=== PATIENT | female | born 1995 | race Caucasian/White ===

== ENCOUNTER 2019-07-15 18:20 | Emergency (ER) | payer OTHER ==
[2019-07-15] MEDS ORDERED: Sodium Chloride 0.9% 10 ML Syringe FLUSH PRN (19:27)
[2019-07-15] MEDS ORDERED: Sodium Chloride 0.9% 2.5 ML Syringe FLUSH PRN (19:27)
[2019-07-15] MEDS ORDERED: Sodium Chloride 0.9% 1,000 ML IV ONE (19:27)
[2019-07-15] MEDS ORDERED: Ondansetron 4 MG/2 ML SDV IVPUSH ONE (19:29)
--- NOTE | 2019-07-15 19:29 | EDM.PDOC ---
ED HPI GENERAL MEDICAL PROBLEM - General Chief Complaint: General Stated Complaint: RT FACE NUMB Time Seen by Provider: 07/15/19 19:17 - History of Present Illness INITIAL COMMENTS - FREE TEXT/NARRATIVE: HISTORY AND PHYSICAL: History of present illness: The patient is a 24-year-old female who follows at [facility] and has a history of PCOS and depression and presents with complaints of 3 days of feeling like her right face and right side of her neck is numb and tingly but not weak and a diffuse frontal and top of the head headache associated with some nausea but no vomiting or diarrhea. The patient says that there is nothing new or different this evening but it has persisted so she came for evaluation. [place] to the patient's father at bedside they have been trying to get her into the clinic but there were no appointments and so they came here this evening but there is nothing new or different about the symptoms and they have been constant. The patient is eating and drinking and does not have any weakness to her face and no extremity weakness numbness or tingling. She has no associated symptoms of fever chills upper respiratory symptomatology abdominal pain difficulty urinating and defecating. She has had no recent trauma to her head or neck and has no pain in her neck. She says her headache is just vague and it is bilateral on the frontal and top part of her head she has had no sinus drainage or congestion. She has been taking Motrin 400 mg for her headache and very irregularly. She is not having trouble speaking swallowing she and her father both state that she is just had generalized weakness and having low energy for the last 3 days as well although she is not passing out or falling she just feels like she has no energy and has generalized weakness. She says that she does get bad headaches at least 3 times a month but she has never spoken with her provider about this and she has never seen a specialist nor has she ever had a diagnosis of migraine headaches. Review of systems: As per history of present illness and below otherwise all systems reviewed and negative. Past medical history: As per history of present illness and as reviewed below otherwise noncontributory. Surgical history: As per history of present illness and as reviewed below otherwise noncontributory. Social history: No reported history of drug or alcohol abuse. Family history: As per history of present illness and as reviewed below otherwise noncontributory. Physical exam: General: Well-developed well-nourished overweight female who is nontoxic and speaking softly but clearly in the ED without slurred or muffled voice. She is able to move in the ED stand and ambulated into the ED without assistance. vital signs are noted by me HEENT: Atraumatic, normocephalic, pupils reactive, negative for conjunctival pallor or scleral icterus, mucous membranes moist, throat clear, neck supple, nontender, trachea midline. There is no cervical adenopathy or nuchal rigidity and no specific mastoid tenderness or erythema no sinus tenderness on palpation and no scalp defects or deformities. There is also no specific tenderness on palpation of the scalp Lungs: Clear to auscultation, breath sounds equal bilaterally, chest nontender. Heart: S1S2, regular, negative for clicks, rubs, or JVD. Abdomen: Soft, nondistended, nontender. Negative for masses or hepatosplenomegaly. Negative for costovertebral tenderness. Pelvis: Stable nontender. Genitourinary: Deferred. Rectal: Deferred. Extremities: Atraumatic, negative for cords or calf pain. Neurovascular unremarkable. Neuro: Awake, alert, oriented. Cranial nerves II through XII unremarkable. There is no facial droop and there is an even smile, patient is able to close eyes and resist opening bilaterally and there is no asymmetry with raise of eyebrows. Cerebellum unremarkable. Motor is 4/5 throughout with a questionable effort and sensory unremarkable throughout the exception of the right face and right anterior neck where she says that she is not feeling simple touch but can feel pressure. This is not limited to around her mouth but extends over her entire face but not into her scalp but does extend to inferior to the mandible and into the anterior neck but not below the clavicle. The decreased sensation does not cross the midline and in fact does not completely extend to the midline and it does not go posteriorly.. Diagnostics: EKG CT scan of the head CBC CMP troponin TSH UA UCG urine cx Therapeutics: IV IV fluids aspirin Toradol Benadryl Solu-Medrol Patient says that her headache is improving but the numbness in her face and anterior neck is still present. I will discuss this case with the neurologist on-call at [facility] in [place] [address]: Was discussed with Dr. Maldonado who is our neurologist and also on-call in [place] and she says that the patient is safe for discharge home and she wants the patient to see her nurse practitioner either tomorrow or the next day. I have informed the patient of this conversation and the need to call the clinic in the morning to schedule that follow-up with the nurse practitioner for further care. We will go ahead and treat the UTI and Dr. Maldonado has advised using [id number] ibuprofen in the appropriate dose pain management until she is followed up Impression: Headache with facial and neck paresthesia, improving, history of chronic headaches UTI Definitive disposition and diagnosis as appropriate pending reevaluation and review of above. headache Pain Score (Numeric/FACES): 8 - Related Data Allergies Allergy/AdvReac Type Severity Reaction Status Date / Time No Known Allergies Allergy Verified 07/15/19 18:33 Home Meds: Home Meds Etonogestrel [Nexplanon] 07/15/19 [History] Sertraline [Zoloft] 50 mg PO DAILY 07/15/19 [History] metFORMIN [Glucophage] 850 mg PO BID 07/15/19 [History] Past Medical History Other Genitourinary History: ovarian cyst Other Musculoskeletal History: back condition similar to scoliosis per PT - Past Surgical History HEENT Surgical History: Reports: Eye Surgery GI Surgical History: Reports: Cholecystectomy Other Female Surgeries/Procedures: PCOS Social & Family History - Family History Family Medical History: Noncontributory - Tobacco Use Smoking Status *Q: Never Smoker - Recreational Drug Use Recreational Drug Use: No ED ROS GENERAL - Review of Systems Review Of Systems: Comprehensive ROS is negative, except as noted in HPI. ED EXAM, GENERAL - Physical Exam Exam: See Below (See dictation) Course - Vital Signs Last Recorded V/S: Last Vital Signs Temp 36.6 C 07/15/19 20:38 Pulse 93 07/15/19 21:06 Resp 16 07/15/19 21:06 BP 152/81 H 07/15/19 21:06 Pulse Ox 98 07/15/19 21:06 - Orders/Labs/Meds Orders: Active Orders 24 hr Category Date Time Status Blood Glucose Check, Bedside [RC] ONETIME Care 07/15/19 19:27 Active EKG Documentation Completion [RC] STAT Care 07/15/19 19:26 Active CULTURE URINE [RM] Stat Lab 07/15/19 19:34 Received Sodium Chloride 0.9% [Saline Flush] Med 07/15/19 19:27 Active 10 ml FLUSH ASDIRECTED PRN Sodium Chloride 0.9% [Saline Flush] Med 07/15/19 19:27 Active 2.5 ml FLUSH ASDIRECTED PRN Saline Lock Insert [OM.PC] Stat Oth 07/15/19 19:26 Ordered Medication Orders Sodium Chloride (Saline Flush) 10 ml FLUSH ASDIRECTED PRN PRN Reason: Keep Vein Open Sodium Chloride (Saline Flush) 2.5 ml FLUSH ASDIRECTED PRN PRN Reason: Keep Vein Open Labs: Laboratory Tests 07/15/19 07/15/19 07/15/19 Range/Units 19:34 19:34 19:38 WBC 9.35 (4.0-11.0) K/uL RBC 4.86 (4.30-5.90) M/uL Hgb 14.0 (12.0-16.0) g/dL Hct 43.2 (36.0-46.0) % MCV 88.9 (80.0-98.0) fL MCH 28.8 (27.0-32.0) pg MCHC 32.4 (31.0-37.0) g/dL RDW Std Deviation 46.9 (28.0-62.0) fl RDW Coeff of Kevin 15 (11.0-15.0) % Plt Count 350 (150-400) K/uL MPV 9.60 (7.40-12.00) fL Neut % (Auto) 59.0 (48.0-80.0) % Lymph % (Auto) 23.6 (16.0-40.0) % [place] % (Auto) 10.9 (0.0-15.0) % Eos % (Auto) 6.0 (0.0-7.0) % Baso % (Auto) 0.5 (0.0-1.5) % Neut # (Auto) 5.5 (1.4-5.7) K/uL Lymph # (Auto) 2.2 (0.6-2.4) K/uL [place] # (Auto) 1.0 H (0.0-0.8) K/uL Eos # (Auto) 0.6 (0.0-0.7) K/uL Baso # (Auto) 0.1 (0.0-0.1) K/uL Nucleated RBC % 0.0 /100WBC Nucleated RBCs # 0 K/uL Sodium (136-145) mmol/L Potassium (3.5-5.1) mmol/L Chloride (98-107) mmol/L Carbon Dioxide (21.0-32.0) mmol/L BUN (7.0-18.0) mg/dL Creatinine (0.6-1.0) mg/dL Est Cr Clr Drug Dosing mL/min Estimated GFR (MDRD) ml/min Glucose (74-106) mg/dL POC Glucose (60-110) mg/dL Calcium (8.5-10.1) mg/dL Total Bilirubin (0.2-1.0) mg/dL AST (15-37) IU/L ALT (14-63) IU/L Alkaline Phosphatase (46-116) U/L Troponin I (0.000-0.056) ng/mL Total Protein (6.4-8.2) g/dL Albumin (3.4-5.0) g/dL Globulin (2.6-4.0) g/dL Albumin/Globulin Ratio (0.9-1.6) TSH 3rd Generation (0.36-3.74) uIU/mL Urine Color YELLOW Urine Appearance HAZY Urine pH 8.0 (5.0-8.0) Ur Specific [place] 1.020 (1.001-1.035) Urine Protein NEGATIVE (NEGATIVE) mg/dL Urine Glucose (UA) NEGATIVE (NEGATIVE) mg/dL Urine Ketones NEGATIVE (NEGATIVE) mg/dL Urine Occult Blood TRACE-LYSED H (NEGATIVE) Urine Nitrite NEGATIVE (NEGATIVE) Urine Bilirubin NEGATIVE (NEGATIVE) Urine Urobilinogen 1.0 (<2.0) EU/dL Ur Leukocyte Esterase SMALL H (NEGATIVE) Urine RBC 2-4 (0-2/HPF) Urine WBC 8-12 (0-5/HPF) Ur Epithelial Cells FEW (NONE-FEW) Amorphous Sediment FEW (NEGATIVE) Urine Bacteria FEW (NEGATIVE) Urine Mucus RARE (NONE-MOD) Urine HCG, Qual NEGATIVE (NEGATIVE) 07/15/19 07/15/19 Range/Units 19:38 19:39 WBC (4.0-11.0) K/uL RBC (4.30-5.90) M/uL Hgb (12.0-16.0) g/dL Hct (36.0-46.0) % MCV (80.0-98.0) fL MCH (27.0-32.0) pg MCHC (31.0-37.0) g/dL RDW Std Deviation (28.0-62.0) fl RDW Coeff of Kevin (11.0-15.0) % Plt Count (150-400) K/uL MPV (7.40-12.00) fL Neut % (Auto) (48.0-80.0) % Lymph % (Auto) (16.0-40.0) % [place] % (Auto) (0.0-15.0) % Eos % (Auto) (0.0-7.0) % Baso % (Auto) (0.0-1.5) % Neut # (Auto) (1.4-5.7) K/uL Lymph # (Auto) (0.6-2.4) K/uL [place] # (Auto) (0.0-0.8) K/uL Eos # (Auto) (0.0-0.7) K/uL Baso # (Auto) (0.0-0.1) K/uL Nucleated RBC % /100WBC Nucleated RBCs # K/uL Sodium 143 (136-145) mmol/L Potassium 3.8 (3.5-5.1) mmol/L Chloride 105 (98-107) mmol/L Carbon Dioxide 27.0 (21.0-32.0) mmol/L BUN 8 (7.0-18.0) mg/dL Creatinine 0.6 (0.6-1.0) mg/dL Est Cr Clr Drug Dosing 116.32 mL/min Estimated GFR (MDRD) > 60.0 ml/min Glucose 88 (74-106) mg/dL POC Glucose 76 (60-110) mg/dL Calcium 9.3 (8.5-10.1) mg/dL Total Bilirubin 0.1 L (0.2-1.0) mg/dL AST 21 (15-37) IU/L ALT 35 (14-63) IU/L Alkaline Phosphatase 109 (46-116) U/L Troponin I < 0.050 (0.000-0.056) ng/mL Total Protein 8.0 (6.4-8.2) g/dL Albumin 3.5 (3.4-5.0) g/dL Globulin 4.5 H (2.6-4.0) g/dL Albumin/Globulin Ratio 0.8 L (0.9-1.6) TSH 3rd Generation 0.97 (0.36-3.74) uIU/mL Urine Color Urine Appearance Urine pH (5.0-8.0) Ur Specific [place] (1.001-1.035) Urine Protein (NEGATIVE) mg/dL Urine Glucose (UA) (NEGATIVE) mg/dL Urine Ketones (NEGATIVE) mg/dL Urine Occult Blood (NEGATIVE) Urine Nitrite (NEGATIVE) Urine Bilirubin (NEGATIVE) Urine Urobilinogen (<2.0) EU/dL Ur Leukocyte Esterase (NEGATIVE) Urine RBC (0-2/HPF) Urine WBC (0-5/HPF) Ur Epithelial Cells (NONE-FEW) Amorphous Sediment (NEGATIVE) Urine Bacteria (NEGATIVE) Urine Mucus (NONE-MOD) Urine HCG, Qual (NEGATIVE) Meds: Medications Generic Name Dose Route Start Last Admin Trade Name Freq PRN Reason Stop Dose Admin Sodium Chloride 10 ml 07/15/19 19:27 Saline Flush FLUSH ASDIRECTED PRN Keep Vein Open Sodium Chloride 2.5 ml 07/15/19 19:27 Saline Flush FLUSH ASDIRECTED PRN Keep Vein Open Discontinued Medications Generic Name Dose Route Start Last Admin Trade Name Abdirahman PRN Reason Stop Dose Admin Aspirin 324 mg 07/15/19 20:46 07/15/19 20:56 Aspirin PO 07/15/19 20:47 324 mg ONETIME ONE Administration Diphenhydramine HCl 50 mg 07/15/19 20:46 07/15/19 20:57 Benadryl IVPUSH 07/15/19 20:47 50 mg ONETIME ONE Administration Sodium Chloride 1,000 mls @ 999 mls/hr 07/15/19 19:27 07/15/19 19:54 Normal Saline IV 07/15/19 20:27 999 mls/hr STAT ONE Administration Ketorolac Tromethamine 30 mg 07/15/19 20:46 07/15/19 20:57 Toradol IVPUSH 07/15/19 20:47 30 mg ONETIME ONE Administration Methylprednisolone Sodium Succinate 125 mg 07/15/19 20:46 07/15/19 20:57 Solu-Medrol IVPUSH 07/15/19 20:47 125 mg ONETIME ONE Administration Ondansetron HCl 4 mg 07/15/19 19:29 07/15/19 19:54 Zofran IVPUSH 07/15/19 19:30 4 mg ONETIME ONE Administration Departure - Departure Time of Disposition: 21:38 Disposition: Home, Self-Care 01 Condition: Good Clinical Impression: Facial paresthesia, UTI, Urinary tract infectious disease Headache Qualifiers: Headache type: unspecified Headache chronicity pattern: unspecified pattern Intractability: not intractable Qualified Code(s): R51 - Headache - Discharge Information Referrals: Ramona Solis MD [Primary Care Provider] - Forms: ED Department Discharge Additional Instructions: The following information is given to patients seen in the emergency department who are being discharged to home. This information is to outline your options for follow-up care. We provide all patients seen in our emergency department with a follow-up referral. The need for follow-up, as well as the timing and circumstances, are variable depending upon the specifics of your emergency department visit. If you don't have a primary care physician on staff, we will provide you with a referral. We always advise you to contact your personal physician following an emergency department visit to inform them of the circumstance of the visit and for follow-up with them and/or the need for any referrals to a consulting specialist. The emergency department will also refer you to a specialist when appropriate. This referral assures that you have the opportunity for followup care with a specialist. All of these measure are taken in an effort to provide you with optimal care, which includes your followup. Under all circumstances we always encourage you to contact your private physician who remains a resource for coordinating your care. When calling for followup care, please make the office aware that this follow-up is from your recent emergency room visit. If for any reason you are refused follow-up, please contact the [facility] emergency department at and ask to speak to the emergency department charge nurse. [facility] [address] [place] [address], [address] [place] [address] Please call the clinic in the morning and schedule a follow-up appointment with the nurse practitioner, Lorelei, for Dr. Maldonado as we discussed making sure that they know that Dr. Maldonado is aware of your need to follow-up with her. Use [id number] ibuprofen/Motrin for headache pain 800 mg every 8 hours and you can add Tylenol as you choose. Push hydration and return to ER as needed and as discussed Sepsis Event Note - Evaluation Sepsis Screening Result: No Definite Risk - Focused Exam Vital Signs: Vital Signs Temp Pulse Resp BP Pulse Ox 07/15/19 21:06 93 16 152/81 H 98 07/15/19 20:38 36.6 C 97 18 151/81 H 97 07/15/19 19:19 36.4 C 102 H 16 145/85 H 96 07/15/19 18:36 36.5 C 107 H 18 140/82 96 Date Exam was Performed: 07/15/19 Time Exam was Performed: 21:37 - My Orders Last 24 Hours: My Active Orders 07/15/19 19:26 EKG Documentation Completion [RC] STAT Saline Lock Insert [OM.PC] Stat 07/15/19 19:27 Blood Glucose Check, Bedside [RC] ONETIME Sodium Chloride 0.9% [Saline Flush] 10 ml FLUSH ASDIRECTED PRN Sodium Chloride 0.9% [Saline Flush] 2.5 ml FLUSH ASDIRECTED PRN 07/15/19 19:34 CULTURE URINE [RM] Stat - Assessment/Plan Last 24 Hours: My Active Orders 07/15/19 19:26 EKG Documentation Completion [RC] STAT Saline Lock Insert [OM.PC] Stat 07/15/19 19:27 Blood Glucose Check, Bedside [RC] ONETIME Sodium Chloride 0.9% [Saline Flush] 10 ml FLUSH ASDIRECTED PRN Sodium Chloride 0.9% [Saline Flush] 2.5 ml FLUSH ASDIRECTED PRN 07/15/19 19:34 CULTURE URINE [RM] Stat
[2019-07-15 20:15] LABS: BLOOD UREA NITROGEN,BUN 8 mg/dL (7.0-18.0); CHLORIDE,CL 105 mmol/L (98-107); GLUCOSE RANDOM 88 mg/dL (74-106); POTASSIUM,K 3.8 mmol/L (3.5-5.1); SODIUM,NA 143 mmol/L (136-145)
--- NOTE | 2019-07-15 20:44 | CT ---
INDICATION: Headache with right sided facial numbness. CT HEAD WITHOUT CONTRAST TECHNIQUE: Multiple axial CT images were performed through the head without intravenous contrast administration. COMPARISON: No previous studies are currently available for comparison. FINDINGS: No acute intracranial hemorrhage is identified. There is no mass effect or midline shift. Ventricles are normal in size and configuration. There is a 3.3 x 1.8 x 2.6 centimeter probable arachnoid cyst over the paramedian right frontal lobe convexity, as on image 31 of series 203 and image 34 of series 204. Brain parenchyma appears normal with unremarkable nazario-white differentiation. Moderate dolichocephaly is noted. Osseous structures are otherwise within normal limits and no fractures are seen. Included portions of the paranasal sinuses and mastoid air cells are normally aerated. IMPRESSION: 1. No acute intracranial abnormality identified. 2. Incidental findings including moderate dolichocephaly and probable arachnoid cyst over the paramedian right frontal convexity. GUMARO CLAY MD [employer] Dictated by John Clay MD @ 07/15/2019 8:40:17 PM Dictated by: John Clay MD @ 07/15/2019 20:41:53 (Electronically Signed)
[2019-07-15] MEDS ORDERED: diphenhydrAMINE 50 MG/ML SDV IVPUSH ONE (20:46)
[2019-07-15] MEDS ORDERED: Ketorolac 30 MG/ML SDV IVPUSH ONE (20:46)
[2019-07-15] MEDS ORDERED: Aspirin 81 MG Tab.Chew PO ONE (20:46)
[2019-07-15] MEDS ORDERED: methylPREDNISolone Sodium Succinate 125 MG/2 ML SDV IVPUSH ONE (20:46)
== END 2019-07-15 22:11 | disposition home or self-care (01) ==
LOC: MW.ED 18:20
DX: R51 Headache (principal); R20.2 Paresthesia of skin; N39.0 Urinary tract infection, site not specified; Z79.899 Other long term (current) drug therapy
CPT/HCPCS: 70450; 80053; 81001; 81025; 82962; 84443; 84484; 85025; 87086; 93005; 96361; 96374; 96375; 99284; A9270; J1200; J1885; J2405; J2930; J7030

== ENCOUNTER 2019-07-20 18:10 | Emergency (ER) | payer OTHER ==
--- NOTE | 2019-07-20 18:27 | EDM.PDOC ---
ED HPI GENERAL MEDICAL PROBLEM - General Chief Complaint: Neuro Symptoms/Deficits Stated Complaint: NUMBNESS ON THE RIGHT SIDE Time Seen by Provider: 07/20/19 18:18 Source of Information: Reports: Patient, Family History Limitations: Reports: No Limitations - History of Present Illness INITIAL COMMENTS - FREE TEXT/NARRATIVE: HISTORY AND PHYSICAL: History of present illness: Patient is a 24-year-old female who presents to the emergency room with concerns of right-sided facial numbness and tingling that radiates into her right arm and right leg, which has been ongoing for 2-3 weeks. She states that the right arm and leg are also somewhat painful like they have "fallen asleep". Patient was seen in our emergency room on 07/15/2019 and was evaluated for these symptoms. She did have a full work-up which included a head CT, all findings appeared within normal limits with the exception of a urinary tract infection. The provider who saw her also spoke with Dr. Townsend, neurologist on-call who recommended that she follow-up as outpatient for MRI. She saw Dr Townsend on 07/16/2019, who said her physical examination "was fine" and scheduled MRI appointment on 08/04/2019. Patient reports her symptoms have not improved, and the numbness sensation has worsened. Review of systems: As per history of present illness and below otherwise all systems reviewed and negative. Past medical history: As per history of present illness and as reviewed below otherwise noncontributory. Surgical history: As per history of present illness and as reviewed below otherwise noncontributory. Social history: See social history for further information Family history: As per history of present illness and as reviewed below otherwise noncontributory. Physical exam: General: Well-developed and well-nourished 24-year-old female. Alert and oriented. Nontoxic-appearing and in no acute distress. HEENT: Atraumatic, normocephalic, pupils equal and reactive bilaterally, negative for conjunctival pallor or scleral icterus, mucous membranes moist, TMs normal bilaterally, throat clear, neck supple, nontender, trachea midline. No drooling or trismus noted. No meningeal signs. No hot potato voice noted. Lungs: Clear to auscultation, breath sounds equal bilaterally, chest nontender. Heart: S1S2, regular rate and rhythm without overt murmur Abdomen: Soft, nondistended, nontender. Negative for masses or hepatosplenomegaly. Negative for costovertebral tenderness. Skin: Intact, warm, dry. No lesions or rashes noted. Extremities: Atraumatic, moves all extremities per self without difficulty or deficits, negative for cords or calf pain. Neurovascular unremarkable. Neuro: Awake, alert, oriented. Cranial nerves II through XII unremarkable. Cerebellum unremarkable. Motor and sensory unremarkable throughout. Exam nonfocal. Notes: Did have patient vigorously moved throughout the emergency room to assess for any weakness or deficits. Her physical exam is WNL. GCS 15, NIH 0. Today's evaluation is no different than her previous orients that she has been having over the past several weeks. I did have Dr Steven, who saw her last week briefly evaluate this patient -there is no difference from that previous exam. After talking with the patient and father further, she states she wanted to get her MRI expedited as she has to work 08/04/2019 and didn't want to have to miss work. supportive care measures were reviewed and discussed. Voices understanding and is agreeable to plan of care. Denies any further questions or concerns at this time. Diagnostics: Head CT Therapeutics: None Prescription: None Impression: Facial paresthesia Plan: 1. Call Dr Townsend's office in the morning. Your head CT was normal today. She may want to expedite your MRI appointment. 2. Return to the ED as needed as discussed. Definitive disposition and diagnosis as appropriate pending reevaluation and review of above. R side of the head Pain Score (Numeric/FACES): 8 - Related Data Allergies Allergy/AdvReac Type Severity Reaction Status Date / Time No Known Allergies Allergy Verified 07/20/19 18:15 Home Meds: Home Meds Etonogestrel [Nexplanon] 68 mg PO ASDIRECTED 07/15/19 [History] Sertraline [Zoloft] 50 mg PO DAILY 07/15/19 [History] metFORMIN [Glucophage] 850 mg PO BID 07/15/19 [History] Past Medical History Other Genitourinary History: ovarian cyst Other Musculoskeletal History: back condition similar to scoliosis per PT Neurological History: Reports: Migraines - Infectious Disease History Infectious Disease History: Reports: None - Past Surgical History HEENT Surgical History: Reports: Eye Surgery GI Surgical History: Reports: Cholecystectomy Other Female Surgeries/Procedures: PCOS Social & Family History - Family History Family Medical History: Noncontributory - Tobacco Use Smoking Status *Q: Never Smoker Second Hand Smoke Exposure: No - Caffeine Use Caffeine Use: Reports: None - Recreational Drug Use Recreational Drug Use: No ED ROS GENERAL - Review of Systems Review Of Systems: Comprehensive ROS is negative, except as noted in HPI. ED EXAM, NEURO - Physical Exam Exam: See Below (See dictation) Course - Vital Signs Last Recorded V/S: Last Vital Signs Temp 96.8 F 07/20/19 19:20 Pulse 78 07/20/19 19:20 Resp 17 07/20/19 19:20 BP 138/78 07/20/19 19:20 Pulse Ox 97 07/20/19 19:20 Departure - Departure Time of Disposition: 19:07 Disposition: Home, Self-Care 01 Clinical Impression: Facial paresthesia - Discharge Information Instructions: Paresthesia, [id number] Referrals: Ramona Solis MD [Primary Care Provider] - Forms: ED Department Discharge Additional Instructions: The following information is given to patients seen in the emergency department who are being discharged to home. This information is to outline your options for follow-up care. We provide all patients seen in our emergency department with a follow-up referral. The need for follow-up, as well as the timing and circumstances, are variable depending upon the specifics of your emergency department visit. If you don't have a primary care physician on staff, we will provide you with a referral. We always advise you to contact your personal physician following an emergency department visit to inform them of the circumstance of the visit and for follow-up with them and/or the need for any referrals to a consulting specialist. The emergency department will also refer you to a specialist when appropriate. This referral assures that you have the opportunity for follow-up care with a specialist. All of these measure are taken in an effort to provide you with optimal care, which includes your follow-up. Under all circumstances we always encourage you to contact your private physician who remains a resource for coordinating your care. When calling for follow-up care, please make the office aware that this follow-up is from your recent emergency room visit. If for any reason you are refused follow-up, please contact the [facility] Emergency Department at and asked to speak to the emergency department charge nurse. [facility] [address] [place] [address] [facility] [address] [place] [address] Townsend's office in the morning. Your head CT was normal today. She may want to expedite your MRI appointment. 2. Return to the ED as needed as discussed. Sepsis Event Note - Evaluation Sepsis Screening Result: No Definite Risk - Focused Exam Vital Signs: Vital Signs Temp Pulse Resp BP Pulse Ox 07/20/19 19:20 96.8 F 78 17 138/78 97 07/20/19 18:16 96.5 F 102 H 16 146/98 H 96 Date Exam was Performed: 07/20/19 Time Exam was Performed: 22:00
--- NOTE | 2019-07-20 18:51 | CT ---
Head CT Technique: Multiple axial sections through the brain were obtained. Intravenous contrast was not utilized. Comparison: Prior head CT study of 07/15/19. Findings: Ventricles along with basal cisterns and sulci over the convexities appear within normal limits. There is focal CSF area overlying the right upper parietal convexity which is stable from prior exam and felt to be a benign etiology. No abnormal parenchymal densities are seen. No evidence of intracranial hemorrhage. No midline shift or mass effect is seen. No acute calvarial abnormality is appreciated. Visualized paranasal sinuses and mastoid sinuses are clear. Impression: 1. Findings which is felt to be incidental as noted above. 2. No acute intracranial abnormality is identified. Diagnostic code #2 Study was dictated in Mountain Standard Time
== END 2019-07-20 19:20 | disposition home or self-care (01) ==
LOC: MW.ED 18:10
DX: R20.2 Paresthesia of skin (principal)
CPT/HCPCS: 70450; 70450-26; 99284-25

== ENCOUNTER 2019-08-23 11:09 | Emergency (ER) | payer OTHER ==
[2019-08-23 12:16] LABS: BLOOD UREA NITROGEN,BUN 22 mg/dL (7.0-18.0); CARBON DIOXIDE,CO2 22.1 mmol/L (21.0-32.0); CHLORIDE,CL 105 mmol/L (98-107); GLUCOSE RANDOM 148 mg/dL (74-106); POTASSIUM,K 4.3 mmol/L (3.5-5.1); SODIUM,NA 141 mmol/L (136-145)
--- NOTE | 2019-08-23 12:17 | CR ---
INDICATION: Multiple sclerosis TECHNIQUE: Chest radiograph 1 view COMPARISON: None FINDINGS: Severe degradation of image quality noted due to body habitus. Mediastinum: The mediastinum is normal in appearance. The heart silhouette is normal in size and morphology. Lung: Very small lung volumes are present with perihilar interstitial opacities which may be due to atelectasis or mild edema. No sign of pleural effusion seen. No pneumothorax is identified. Bone and Soft tissue: Unremarkable for age. IMPRESSIONS: 1. Very small lung volumes are present with perihilar interstitial opacities which may be due to atelectasis or mild edema. 2. Severe degradation of image quality noted due to body habitus. Dictated by Abelino Hooper MD @ 08/23/2019 12:14:35 PM Dictated by: Abelino Hooper MD @ 08/23/2019 12:14:40 (Electronically Signed)
--- NOTE | 2019-08-23 12:32 | EDM.PDOC ---
ED HPI GENERAL MEDICAL PROBLEM - General Chief Complaint: Cardiovascular Problem Stated Complaint: FAST HEART BEAT Time Seen by Provider: 08/23/19 11:15 - History of Present Illness INITIAL COMMENTS - FREE TEXT/NARRATIVE: HPI 24-year-old morbidly obese female with recently diagnosed MS receiving IV starting infusions of Solu-Medrol (4000 mg) presents for evaluation of recurrent episodes of palpitations that occurred following her infusions. No history of DVT, PE, or further identifiable abnormalities. No chest pain, no cough. No fevers or chills. M/S/F/SocHx notable for: please see HPI; remainder reviewed with patient and in chart. ROS: Negative constitutional, eye, cardiovascular, pulmonary, GI, , MSK, skin , neurologic, psychiatric, endocrine unless noted in the HPI. Exam Gen: Pleasant, non-toxic appearing, resting comfortably. HEENT: NC, AT, PEERL, EOMI. Resp: Clear to auscultation bilaterally, normal work of breathing, no accessory muscle usage. Card: Regular rate and rhythm with no murmurs, rubs, or gallops, extremities warm and well perfused. GI: Non-tender to palpation throughout all quadrants, no focal tenderness at McBurney's point, negative Saab's sign, non-distended, no rebound or guarding. : No suprapubic tenderness to palpation. MSK: No visible deformities, strength and tone without visually appreciable deficit. Skin: Normal color with no visible lesions. Neuro: alert and oriented 3, no facial asymmetry, vision and hearing WNL. Psych: Mood and affect appropriate. Labs / Imaging: EKG: SR 94 bpm, no IN segment depressions, IN 124 ms, QRS 92 ms, no ST segment elevations or depressions, no discordant T wave inversions, no hyperacute T waves, QTc 427 seconds. WBC 17.4, HB 13.1, sodium 141, potassium 4.3, troponin <0.050, TSH 0.61, hCG negative. CXR: 1. Very small lung volumes are present with perihilar interstitial opacities which may be due to atelectasis or mild edema. 2 Severe degradation of image quality noted due to body habitus. MDM Previous chart, nursing note, labs, imaging, and vitals reviewed. A: 24-year-old morbidly obese female with recently diagnosed MS receiving IV starting infusions of Solu-Medrol (4000 mg) presents for evaluation of recurrent episodes of palpitations that occurred following her infusions. DDx & Evaluation: patient is well-appearing without discernible abnormalities on exam, suspect post infusion reactions are secondary to a high dose steroids being given. Leukocytosis consistent with her Solu-Medrol infusion. No evidence of active infectious medical process. Chest x-ray unremarkable, electrolytes within acceptable limits, TSH WNL. ECG without evidence of arrhythmia, ischemia , or changes consistent with pericarditis or myocarditis, troponin negative, low pretest probability for PE, d-dimer is negative; as such PE is appropriately ruled out / risk ratified. Disposition: discharge with PCP f/u as needed. Impression: palpitations. - Related Data Allergies Allergy/AdvReac Type Severity Reaction Status Date / Time No Known Allergies Allergy Verified 08/23/19 11:34 Home Meds: Home Meds Etonogestrel [Nexplanon] 68 mg PO ASDIRECTED 07/15/19 [History] Sertraline [Zoloft] 50 mg PO DAILY 07/15/19 [History] metFORMIN [Glucophage] 850 mg PO BID 07/15/19 [History] Cholecalciferol (Vitamin D3) [Vitamin D] 50,000 units PO WEEKLY 08/23/19 [ History] predniSONE [Prednisone] 10 mg PO ASDIRECTED 08/23/19 [History] Past Medical History HEENT History: Reports: Impaired Vision Gastrointestinal History: Reports: None Other Genitourinary History: ovarian cyst Other Musculoskeletal History: back condition similar to scoliosis per PT Neurological History: Reports: Migraines, MS, Other (See Below) Other Neuro History: Pt reports "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 - Infectious Disease History Infectious Disease History: Reports: None - Past Surgical History HEENT Surgical History: Reports: Eye Surgery GI Surgical History: Reports: Cholecystectomy Other Female Surgeries/Procedures: PCOS Musculoskeletal Surgical History: Reports: None Social & Family History - Family History Family Medical History: Noncontributory - Tobacco Use Smoking Status *Q: Never Smoker Second Hand Smoke Exposure: No - Caffeine Use Caffeine Use: Reports: None - Recreational Drug Use Recreational Drug Use: No ED ROS GENERAL - Review of Systems Review Of Systems: See Below ED EXAM, GENERAL - Physical Exam Exam: See Below Course - Vital Signs Last Recorded V/S: Last Vital Signs Temp 36.3 C 08/23/19 11:26 Pulse 106 H 08/23/19 11:26 Resp 20 08/23/19 11:26 BP 178/94 H 08/23/19 11:26 Pulse Ox 96 08/23/19 11:26 - Orders/Labs/Meds Labs: Laboratory Tests 08/23/19 08/23/19 08/23/19 Range/Units 11:41 11:41 11:41 WBC 17.40 H (4.0-11.0) K/uL RBC 4.50 (4.30-5.90) M/uL Hgb 13.1 (12.0-16.0) g/dL Hct 40.8 (36.0-46.0) % MCV 90.7 (80.0-98.0) fL MCH 29.1 (27.0-32.0) pg MCHC 32.1 (31.0-37.0) g/dL RDW Std Deviation 49.2 (28.0-62.0) fl RDW Coeff of Kevin 15 (11.0-15.0) % Plt Count 349 (150-400) K/uL MPV 9.30 (7.40-12.00) fL Neut % (Auto) 84.9 H (48.0-80.0) % Lymph % (Auto) 8.2 L (16.0-40.0) % [place] % (Auto) 6.8 (0.0-15.0) % Eos % (Auto) 0.0 (0.0-7.0) % Baso % (Auto) 0.1 (0.0-1.5) % Neut # (Auto) 14.8 H (1.4-5.7) K/uL Lymph # (Auto) 1.4 (0.6-2.4) K/uL [place] # (Auto) 1.2 H (0.0-0.8) K/uL Eos # (Auto) 0.0 (0.0-0.7) K/uL Baso # (Auto) 0.0 (0.0-0.1) K/uL Nucleated RBC % 0.0 /100WBC Nucleated RBCs # 0 K/uL D-Dimer, Quantitative 0.30 (0.0-0.50) mg/L FEU Sodium 141 (136-145) mmol/L Potassium 4.3 (3.5-5.1) mmol/L Chloride 105 (98-107) mmol/L Carbon Dioxide 22.1 (21.0-32.0) mmol/L BUN 22 H (7.0-18.0) mg/dL Creatinine 0.8 (0.6-1.0) mg/dL Est Cr Clr Drug Dosing 87.24 mL/min Estimated GFR (MDRD) > 60.0 ml/min Glucose 148 H (74-106) mg/dL Calcium 9.2 (8.5-10.1) mg/dL Troponin I < 0.050 (0.000-0.056) ng/mL TSH 3rd Generation 0.61 (0.36-3.74) uIU/mL HCG, Qual (NEG) 08/23/19 Range/Units 11:41 WBC (4.0-11.0) K/uL RBC (4.30-5.90) M/uL Hgb (12.0-16.0) g/dL Hct (36.0-46.0) % MCV (80.0-98.0) fL MCH (27.0-32.0) pg MCHC (31.0-37.0) g/dL RDW Std Deviation (28.0-62.0) fl RDW Coeff of Kevin (11.0-15.0) % Plt Count (150-400) K/uL MPV (7.40-12.00) fL Neut % (Auto) (48.0-80.0) % Lymph % (Auto) (16.0-40.0) % [place] % (Auto) (0.0-15.0) % Eos % (Auto) (0.0-7.0) % Baso % (Auto) (0.0-1.5) % Neut # (Auto) (1.4-5.7) K/uL Lymph # (Auto) (0.6-2.4) K/uL [place] # (Auto) (0.0-0.8) K/uL Eos # (Auto) (0.0-0.7) K/uL Baso # (Auto) (0.0-0.1) K/uL Nucleated RBC % /100WBC Nucleated RBCs # K/uL D-Dimer, Quantitative (0.0-0.50) mg/L FEU Sodium (136-145) mmol/L Potassium (3.5-5.1) mmol/L Chloride (98-107) mmol/L Carbon Dioxide (21.0-32.0) mmol/L BUN (7.0-18.0) mg/dL Creatinine (0.6-1.0) mg/dL Est Cr Clr Drug Dosing mL/min Estimated GFR (MDRD) ml/min Glucose (74-106) mg/dL Calcium (8.5-10.1) mg/dL Troponin I (0.000-0.056) ng/mL TSH 3rd Generation (0.36-3.74) uIU/mL HCG, Qual NEGATIVE (NEG) Departure - Departure Time of Disposition: 12:31 Disposition: Home, Self-Care 01 Clinical Impression: Palpitations Referrals: PCP,None [Primary Care Provider] - Additional Instructions: You were in seen in the [facility] Emergency Department for evaluation of palpitations. At the time of your evaluation your symptoms are believed to be due to your steroid infusions. Please read and follow all of the instructions below. Please follow up with your primary care physician within 2-3 days if you have any further symptoms. When calling for follow-up care, please make the office aware that this follow-up is from your recent emergency room visit. If for any reason you are refused follow-up, please contact the [facility] Emergency Department at and asked to speak to the emergency department charge nurse. Your care today was limited to identifying and treating emergent medical problems only. Many people have subtle differences in their test results that require follow up with their outpatient physician(s) to correctly determine if this represents a normal variation or concerning abnormality with respect to your specific health. The care given to you today was limited to identifying and treating emergent medical problems - you need to request a copy of all of your medical records from today's visit and follow up with your outpatient physician(s) to review both today's visit and your overall health. If you have any new symptoms or if you are at all concerned about your health please return immediately to the emergency department. Prescriptions: If you are uninsured or have financial difficulties with filling your prescription(s), you may consider using a free pharmacy discount service such as [facility] ([employer]) or [employer] ([employer] These services allow you to search for a medication on your phone (or computer) and obtain a coupon that usually has a significant discount from the list nathan at a pharmacy. Your physician as well as [facility] does not have a financial relationship with either of these services. You may also wish to speak with your physician to determine if lower cost prescriptions are possible. Obtaining primary care: 1. [facility] provides pediatrics (children), family medicine (children, adults, and some obstetrical care), and internal medicine (adults). Further specialty care is also available. Same day appointments are available. They may be contacted at [phone] and are open Saturday through Saturday 8 AM to [address] [facility] are located at [facility], [address] [place] [address]. 2. [facility] offers family medicine, internal medicine, special care hospital, and further specialty care. [facility] may be contacted at [phone]. [facility] is located at [address] [facility] [address]. 3. If you have health insurance, please also contact your insurer for a list of accepting providers under your policy, you may contact these providers for further health care. Occupational health: Work related injuries may consider following up with [facility], . Occupational health services are located at [address] [place] [address] and are open Saturday through Saturday from 7: 30 am to 5:00 pm. Obstetrical and Gynecological Care: [facility], , Saturday through Saturday 8 AM to 5 PM. [address] [place] [address]. Eyecare: If you have an eye injury you should follow up with your film printer or with [facility], at [phone] or [phone] , they are located at [address] [facility], [place] [address]. [facility] Scott Bell DDS. [address] [facility] [place], [place]. Ph. [phone] Luiz Bell DDS MS. [address] [facility] [address], [place], [place]. Ph. Reg Dodson DDS. [address] [place] [address]. Ph. [phone] Jayden Ennis DDS. [address] [place] [facility] [address] [place]. Ph. [phone] Roberth Ramirez DDS PC. [address] [facility] [address] [place], [place]. Ph. [phone] Britany Monterroso DDS. [address] [facility]. Ph. [phone] [facility]. [address] [place], [place]. Ph. [phone] [facility]. [address], [place], [place]. Ph. [phone] [facility] [address] [place] [address]. Ph. [facility] [address] [place] [address] [address] [place], [place]. Ph. [phone] [facility]. [address] [place], [place]. Ph. [phone] Sepsis Event Note - Evaluation Sepsis Screening Result: No Definite Risk - Focused Exam Vital Signs: Vital Signs Temp Pulse Resp BP Pulse Ox 08/23/19 11:26 36.3 C 106 H 20 178/94 H 96 Date Exam was Performed: 08/23/19 Time Exam was Performed: 12:30
== END 2019-08-23 12:45 | disposition home or self-care (01) ==
LOC: MW.ED 11:09
DX: R00.2 Palpitations (principal); Z79.899 Other long term (current) drug therapy; Z79.84 Long term (current) use of oral hypoglycemic drugs
CPT/HCPCS: 36415; 71045; 71045-26; 80048; 84443; 84484; 84703; 85025; 85379; 99285-25